=== PATIENT | male | born 1990 | race Caucasian/White ===

== ENCOUNTER 2020-03-09 14:55 | Emergency (ER) | payer OTHER, SELFPAY ==
[~2020-03-09] VITALS: Ht 167.6 cm; Wt 83.5 kg
[2020-03-09 14:56] VITALS: BP 134/85; Ht 167.6 cm; Wt 83.5 kg
== END 2020-03-09 15:40 | disposition home or self-care (01) ==
LOC: ED 14:55
DX: R51 Headache (principal); Z20.828 Contact with and (suspected) exposure to other viral communicable diseases
CPT/HCPCS: U0003-CS